=== PATIENT | male | born 1930 | race Caucasian/White ===

== ENCOUNTER → 2017-08-18 | Outpatient (CLI) | payer MEDICARE, BC ==
[~2017-08-18] MED LIST: AMLO10CA PO; AMLO10TA2 PO; CIPR500T2 PO; CYAN1TAB24 PO; DULO1CAP2 PO; ENOX30IN I-VENTRIC; METO1TAB9 PO; OMEP20CA2 PO; OXYC1TAB36 PO; PERC10TA27 PO; TOPR50TA PO; WALKER WHEELS/F1 MIS; XARE20TA PO
[2017-08-18 14:11] LABS: AUTOMATED NEUTROPHIL # 6.7 TH/MM3 (1.8-7.7); BASOPHIL # 0.1 TH/MM3 (0-0.2); EOSINOPHIL # 0.1 TH/MM3 (0-0.4); EOSINOPHIL % 0.8 % (0.0-4.0); HEMATOCRIT 46.6 % (39.0-51.0); HEMO FLAGS DIFF FINAL; LYMPH % 22.6 % (9.0-44.0); LYMPHOCYTE # 2.3 TH/MM3 (1.0-4.8); MEAN CELL VOLUME 84.6 FL (80.0-100.0); MEAN CORPUSCULAR HEMOGLOBIN 28.7 PG (27.0-34.0); MEAN CORPUSCULAR HGB CONC 33.9 % (32.0-36.0); MONO % 8.4 % (0.0-8.0); NEUT % 67.2 % (16.0-70.0); PLATELET COUNT 296 TH/MM3 (150-450); RED BLOOD COUNT 5.51 MIL/MM3 (4.50-5.90); RED CELL DISTRIBUTION WIDTH 15.5 % (11.6-17.2)
[2017-08-18 14:20] LABS: APTT (PATIENT) 33.1 SEC (24.3-30.1); INTERNATIONAL NORMALIZED RATIO 1.3 RATIO
[2017-08-18 14:24] LABS: BACTERIA, URINE OCC /hpf; BLOOD, URINE MOD (NEG); GLUCOSE,URINE NEG (NEG); HYALINE CAST, URINE 1 /lpf (RARE); KETONE, URINE NEG (NEG); NITRITE,URINE NEG (NEG); PH, URINE 6.5 (5.0-8.5); SQUAMOUS EPITHELIAL CELL URINE <1 /hpf (0-5); URINE COLOR YELLOW (YELLW/STRAW)
[2017-08-18 14:28] LABS: COMMENT (UR) CULTURE INDICATED; CULTURE IF INDICATED CULTURE INDICATED
[2017-08-18 14:29] LABS: ALT (GPT) 28 U/L (12-78); ANION GAP 7 MEQ/L (5-15); AST (GOT) 19 U/L (15-37); BICARBONATE 30.8 MEQ/L (21.0-32.0); BLOOD UREA NITROGEN 15 MG/DL (7-18); CHLORIDE 102 MEQ/L (98-107); GLOMERULAR FILTRATION RATE 57 ML/MIN (>89); GLUCOSE,FASTING 101 MG/DL (74-99); POTASSIUM 4.1 MEQ/L (3.5-5.1); SODIUM (NA) 140 MEQ/L (136-145)
[2017-08-18 14:31] LABS: ALKALINE PHOSPHATASE 95 U/L (45-117); TOTAL BILIRUBIN ADULT 0.8 MG/DL (0.2-1.0)
--- NOTE | 2017-08-18 15:01 | RADRPT ---
EXAM DATE/TIME: 08/18/2017 14:19 [facility] COMPARISON: CHEST PA & LAT, May 22, 2016, 12:22. INDICATIONS : Evaluate for pneumonia, pneumothorax or communicable disease. Pre op for back surgery this week. MEDICAL HISTORY : atrial fibrillation. SURGICAL HISTORY : None. ENCOUNTER: Initial ACUITY: 1 day PAIN SCORE: 0/10 LOCATION: Bilateral chest FINDINGS: PA and lateral views of the chest demonstrate the lungs to be symmetrically aerated without evidence of mass, infiltrate or effusion. The cardiomediastinal contours are unremarkable. Osseous structure s are intact. CONCLUSION: No acute disease. Balaji Barnard Jr., MD on August 18, 2017 at 14:57 Board Certified Radiologist. This report was verified electronically.
--- NOTE | 2017-08-18 21:11 | EKG ---
Date Performed: 08/18/2017 Time Performed: 13:32:34 PTAGE: 87 years EKG: ATRIAL FIBRILLATION ABNORMAL RHYTHM ECG PREVIOUS TRACING : 05/22/2016 11.29 Compared to prior tracing no significant change DOCTOR: Jaida Barnett Interpretating Date/Time 08/18/2017 21:09:20
== END ==
LOC: CPRE 13:03
PROVIDERS: ATTEND Neurological Surgery
DX: Z01.810 Encounter for preprocedural cardiovascular examination (principal); Z01.811 Encounter for preprocedural respiratory examination; Z01.812 Encounter for preprocedural laboratory examination; M51.26 Other intervertebral disc displacement, lumbar region; M51.36 Other intervertebral disc degeneration, lumbar region; R94.31 Abnormal electrocardiogram [ECG] [EKG]; R82.90 Unspecified abnormal findings in urine; Z79.01 Long term (current) use of anticoagulants
CPT/HCPCS: 36415; 71020; 80053; 81001; 85025; 85610; 85730; 87086; 93005

== ENCOUNTER 2017-08-20 08:30 | Inpatient (IN) | payer MEDICARE, BC ==
[~2017-08-20] VITALS: Ht 182.9 cm; Wt 98.6 kg
[~2017-08-20 08:30] MED LIST changes: -AMLO10CA PO; -ENOX30IN I-VENTRIC; -METO1TAB9 PO; -OXYC1TAB36 PO; -WALKER WHEELS/F1 MIS
--- NOTE | 2017-08-26 18:10 | MH ---
cc: SHELLEY FONTAINE DR. KHANNA, ROHIT K. M.D. DATE OF ADMISSION: 08/28/2017 ADMITTING DIAGNOSIS: Lumbar degenerative disk disease. HISTORY OF PRESENT ILLNESS This is an 87-year-old male who previously had undergone an L4-L5 microdiskectomy on 05/28/2016 and did well subsequent to that. He states in September of 2016, he bent down and felt pain in his low back that radiated into the right leg. He has been to pain management had one injection which helped for two weeks and then he has had multiple other injection since then. They have not helped at all. The pain in the right buttocks radiates into the lateral thigh and calf. He has paresthesias in the posterior aspect of his leg and bottom of the foot. He denies any bowel or bladder incontinence. He states his leg feels weak and can give out on him. He states he can only walk about 100 feet before he has to stop and sit down or else he feels like he will fall. He can only stand for five minutes before the pain becomes severe and he has to sit down again. He states the pain is affecting his life and he is not as active as he wants to be. PAST MEDICAL HISTORY Significant for: 1. Atrial fibrillation 2. Hypertension 3. Gastroesophageal reflux disease 4. Depression. PAST SURGICAL HISTORY: 1. Right arm and elbow implant in 2001. 2. Left and right knee replacement in 2011 and 2012. 3. L4-L5 decompressive laminectomy with microdiskectomy 05/28/2016. CURRENT MEDICATIONS 1. [place] 10/325 p.o. q6 hours p.r.n. pain. 2. Hydrochlorothiazide 25 mg p.o. daily. 3. Cipro 500 mg p.o. b.i.d. 4. Toprol 25 mg p.o. daily. 5. Xarelto 10 milligrams p.o. daily. This was placed on hold four days prior to surgical intervention. 6. Prilosec 10 milligrams p.o. daily. 7. Cymbalta 20 milligrams p.o. daily. ALLERGIES No known drug allergies. FAMILY HISTORY His mother is at 73 years old of natural causes. Father at 79 years old, had a heart attack. Sister at 88 years old, had a heart attack. Another sister at 91 years old, had cancer. Brother at 89 years old of a heart attack. SOCIAL HISTORY: He is retired. He is . He has two children. He lives alone. He does not smoke. He states he has not smoked in the past. He does not drink alcohol. REVIEW OF SYSTEMS Constitutional: Denies any fever or chills. HEENT: No pharyngitis, exudates or bloody drainage from his nose. Cardiovascular: Denies any chest pain or palpitations. Respiratory: Positive for shortness of breath. No cough. Genitourinary: No dysuria or hematuria. Musculoskeletal: Positive for low back pain and leg pain. Skin: No rashes or pruritus. Neurologic: No difficulty with speech or memory. Gastrointestinal: No nausea, vomiting, abdominal pain. Psychiatric: No anxiety symptoms. Positive for depression symptoms. Endocrine: No polyuria, polydipsia. Hematologic: Positive for bruising or bleeding tendencies related to his anticoagulation. DATA REVIEWED: MRI of the lumbar spine from July 18, 2017 reveals a recurrent L4-L5 disk degeneration with herniation and facet arthropathy and severe spinal stenosis. He has moderate L5-S1 disk degeneration. IMPRESSION An 87 year-old male with history of low back pain and neurogenic claudication symptoms as well as right L4-L5 radiculopathy. The lower extremity symptoms bother him more than the back pain and are produced with any standing more than five minutes or walking more than 100 feet. He has tried physical therapy in the past without much relief, and has also been to pain management which provide him with very limited relief. PLAN: We discussed treatment options with the patient which include continued conservative treatment measures including physical therapy and pain management versus surgical intervention. We have discussed with him a redo L4-L5 laminectomy with microdiskectomy versus an L4-L5 transforaminal decompression with interbody fusion and pedicle screw fixation. The patient is requesting that we proceed with lumbar fusion. He was, therefore, scheduled accordingly for L4-L5 translateral interbody fusion. The procedure as well as the risk, benefit, alternatives and recovery time were explained in great detail with the patient. We have discussed the risks involved with surgery to include but are not limited to bleeding, infection, muscle weakness, voice hoarseness, difficulty swallowing, heart attack, stroke, blood clots, non-fusion, scar tissue formation among others. The patient states he understands the procedure as well as the risks involved and is requesting that we proceed and is therefore scheduled accordingly. Dictated by: Lane Cook PA-C MD LESLI Ordonez/WIL /4:48 PM /5:12 PM
[2017-08-28] MEDS ORDERED: VANCOMYCIN HCL 1000 MG VIAL ONE ×3 (06:39→06:55)
[2017-08-28] MEDS ORDERED: SODIUM CHLOR 0.9% 250 ML INJ 250 ML ONE (06:40)
[2017-08-28] MEDS ORDERED: CHLORHEXIDINE GLUCONATE 2 % 1 PACK (2 CLOTHS) TOPICAL PRN (06:45)
[2017-08-28] MEDS ORDERED: METOPROLOL TARTRATE 25 MG TAB PO PRN (06:45)
[2017-08-28] MEDS ORDERED: POVIDONE IODINE 5% (ANTISEPSIS KIT) 4 APPLICATIONS EACH NARE PRN (06:45)
[2017-08-28] MEDS ORDERED: SODIUM CHLORID 0.9% 500 ML IV PRN (06:45)
[2017-08-28] MEDS ORDERED: LACTATED RINGER'S 1000 ML IV PRN (06:45)
[2017-08-28] MEDS ORDERED: INSULIN HUMAN REGULAR 1,000 UNITS/10 ML VIAL SQ PRN (06:45)
[2017-08-28] MEDS ORDERED: THROMBIN (TOPICAL) 5,000 UNIT VIAL ONE (06:55)
[2017-08-28] MEDS ORDERED: BUPIVACAINE/EPINEPHRINE 0.5% PF 30 ML VIAL ONE (06:55)
[2017-08-28] MEDS ORDERED: GELFOAM SIZE 100 ONE (06:55)
[2017-08-28] MEDS ORDERED: VANCOMYCIN HCL 1000 MG ON-CALL/NS 250 ML IV SCH ×2 (07:00)
[2017-08-28] MEDS ORDERED: ONDANSETRON HCL 4 MG/2 ML VIAL IV PUSH PRN (09:45)
[2017-08-28] MEDS ORDERED: CALCIUM GLUCONATE INJ 1 GM in SODIUM CHLORIDE 0.9% INJ 100 ML IV PRN (09:45)
[2017-08-28] MEDS ORDERED: POTASSIUM CHLOR 20 MEQ PREMIX 100 ML IV PRN (09:45)
[2017-08-28] MEDS ORDERED: MAGNESIUM HYDROXIDE SUSP 30 ML CUP PO PRN (09:45)
[2017-08-28] MEDS ORDERED: ALUMINUM/MAGNESIUM/SIMETH 30 ML CUP PO PRN (09:45)
[2017-08-28] MEDS ORDERED: ACETAMINOPHEN 325 MG TAB PO PRN (09:45)
[2017-08-28] MEDS ORDERED: PROMETHAZINE INJ 25 MG/ML VIAL IM PRN (09:45)
[2017-08-28] MEDS ORDERED: CYCLOBENZAPRINE HCL 10 MG TAB PO PRN (09:45)
[2017-08-28] MEDS ORDERED: MORPHINE SULFATE 4 MG/ML INJ IV PUSH PRN (09:45)
[2017-08-28] MEDS ORDERED: cloNIDine HCL 0.1 MG TAB PO PRN (09:45)
[2017-08-28] MEDS ORDERED: ZOLPIDEM TARTRATE 5 MG TAB PO PRN (09:45)
[2017-08-28] MEDS ORDERED: MAGNESIUM SULFATE INJ 2 GM in SODIUM CHLORIDE 0.9% INJ 100 ML IV PRN (09:45)
[2017-08-28] MEDS ORDERED: RESP: ALBUTEROL 2.5 MG/3 ML NEB (PRN) NEB (09:45)
[2017-08-28] MEDS ORDERED: SODIUM CHLORIDE 0.9% FLUSH 10 ML FLUSH IV FLUSH PRN (09:45)
[2017-08-28] MEDS ORDERED: PROPOFOL 200 MG/20 ML AMP IV ONE (12:00)
[2017-08-28] MEDS ORDERED: LACTATED RINGER'S 1000 ML INJ 1,000 ML IV ONE (12:00)
[2017-08-28] MEDS ORDERED: ONDANSETRON HCL 4 MG/2 ML VIAL IV ONE (12:00)
[2017-08-28] MEDS ORDERED: ROCURONIUM INJ 50 MG/5 ML SYRINGE IV PUSH ONE (12:00)
[2017-08-28] MEDS ORDERED: DEXAMETHASONE SOD PHOS 4 MG/ML VIAL IV ONE (12:00)
[2017-08-28] MEDS ORDERED: LIDOCAINE HCL 1% PF 5 ML SYRINGE OTHER ONE (12:00)
[2017-08-28] MEDS ORDERED: DO NOT ADM ANY ANTICOAGULANT DRUGS PRN (12:07)
--- NOTE | 2017-08-28 12:11 | PD.OP ---
Glenna Romero MD Operative Report Date of Surgery: Aug 28, 2017 Preoperative Diagnosis: Recurrent L4-5 disc herniation with degenerative disc disease and facet hypertrophy associated spinal and foraminal stenosis; intractable low back pain with right L4 radiculopathy Postoperative Diagnosis: Same Procedure: Right L4-5 transforaminal decompression with interbody fusion; L4-5 pedicle screw fixation; L4-5 interbody cage placement; microsurgical technique Anesthesia: Gen. endotracheal by Ruben perry Surgeon: Marshall Alvarez M.D. Director Business Development(s): Mariaa Jarvis Operation and Findings: Following initiation of general endotracheal anesthesia, the patient had a Rowe catheter placed along with sequential compression devices. A gram of vancomycin was administered intravenously and he was turned in a prone position on a Gil[place] frame, on a Neville table, and all pressure points adequately padded. The lumbosacral region was then prepped with Chloraprep and sterilely draped with Ioban along the usual sterile draping. A skin incision at the previous midline area was then made extending from the L4-L5 level after infiltrating the skin with 0.5% Marcaine with epinephrine solution extending down through the fascia. The muscle fibers were split using avascular fatty plane and detached from the underlying facets, transverse process and lateral portion of lamina on the right side and a self-retaining retractor used for exposure. Intraoperative fluoroscopy was also used for level of confirmation along with microscope magnification for further dissection. There was significant facet and ligamentum flavum hypertrophy noted at the L4-5 levels with the hemilaminotomy defect and epidural fibrosis and scar tissue. Right L4- 5 facet was resected with a drill bit along with the lamina and there was severe foraminal and lateral recess stenosis from hypertrophied ligamentum flavum and facet which were decompressed. There was significant disc height collapse along with disc protrusion also leading to the foraminal stenosis. Epidural hemostasis was achieved with bipolar cautery and Gelfoam with thrombin. Subsequently entered into the disc space at the L4-5 level with a # 15 blade and betty were used for discectomy. I then placed PEEK cage packed with local autograft bone and more local autograft bone was packed adjacent to the cage in interspace for added interbody fusion. With placement of the cage, I was able to distract the interspace and opened up the foramen further bilaterally. Subsequently in order to facilitate the fusion and provide stabilization, pedicle screw fixation was undertaken using Fowler spine screws on entry point at the right L4-5 levels at the junction of the transverse process and facet. Subsequently using AP and lateral fluoroscopy tap and screw placement. The screws were then connected with a osmin and locked in place with caps. The construct appeared very secure at this point. The area was then copiously irrigated with Vancomycin solution and powder. The retractors were removed and the bipolar cautery used for hemostasis. The muscle fascia was then approximated using 2-0 Vicryl interrupted stitches and then 3-0 Vicryl subcuticular stitches also placed in interrupted fashion. The final skin closure was completed with Mastisol and Steri-Strips. A sterile dressing was then applied. The patient then turned in supine position, extubated and taken to recovery room. There were no intraoperative complications. All sponge and needle counts were correct at the end of procedure. Estimated blood loss about 50 ml. Marshall Alvarez MD Aug 28, 2017 12:11
--- NOTE | 2017-08-28 12:34 | RADRPT ---
EXAM DATE/TIME: 08/28/2017 08:40 [facility] COMPARISON: No previous studies available for comparison. INDICATIONS : Post-op L4-L5 posterior lumbar fusion. MEDICAL HISTORY : None. SURGICAL HISTORY : Lumbar laminectomy. ENCOUNTER: Initial ACUITY: 1 day PAIN SCORE: Non-responsive. LOCATION: Lumbar spine. FINDINGS: Number AP and crosstable lateral fluoroscopic images of the lower lumbar spine. There has been intrad iscal and right posterior osmin and transpedicular screw fixation at L4-5. Hardware appears intact and well-positioned. Sagittal alignment is maintained. The visualized vertebral body heights are intact. CONCLUSION: 1. Status post L4-L5 intradiscal and posterior fixation, as above. Shaquille Nuñez MD on August 28, 2017 at 12:31 Board Certified Radiologist. This report was verified electronically.
[2017-08-28 13:30] VITALS: BP 128/69; PULSE 84; RESP 18; TEMP 97.7; O2SAT 98
[2017-08-28] MEDS: NS + KCL 20 MEQ INJ 1,000 ML IV SCH (13:30)
[2017-08-28 13:41] LABS: HEMATOCRIT 36.9 % (39.0-51.0); MEAN CELL VOLUME 85.5 FL (80.0-100.0); MEAN CORPUSCULAR HEMOGLOBIN 29.1 PG (27.0-34.0); PLATELET COUNT 217 TH/MM3 (150-450); RED BLOOD COUNT 4.32 MIL/MM3 (4.50-5.90); RED CELL DISTRIBUTION WIDTH 14.8 % (11.6-17.2); WHITE BLOOD COUNT 8.5 TH/MM3 (4.0-11.0)
[2017-08-28 13:47] LABS: REVIEW FLAG FINAL
[2017-08-28 14:02] LABS: BICARBONATE 23.9 MEQ/L (21.0-32.0)
[2017-08-28 14:03] LABS: POTASSIUM 4.2 MEQ/L (3.5-5.1)
[2017-08-28 14:16] LABS: CALCIUM-PROTEIN CORRECTED 7.5 MG/DL (8.5-10.1)
[2017-08-28] MEDS: SODIUM CHLOR 0.9% 1000 ML INJ 1,000 ML IV SCH (14:25)
[2017-08-28] MEDS: oxyCODONE/ACETAMINOPHEN 10 MG/325 MG TAB PO PRN ×2 (15:42→20:15)
[2017-08-28 16:00] VITALS: BP 131/67; PULSE 90; RESP 18; TEMP 97.6; O2SAT 95
[2017-08-28 20:00] VITALS: BP 123/60; PULSE 85; RESP 20; TEMP 98.2; O2SAT 94
[2017-08-28] MEDS: DOCUSATE SODIUM 100 MG CAP PO SCH (20:15)
[2017-08-28] MEDS: CIPROFLOXACIN 500 MG TAB PO SCH (20:16)
[2017-08-28] MEDS: SODIUM CHLORIDE 0.9% FLUSH 10 ML FLUSH IV FLUSH SCH (21:00)
[2017-08-29] VITALS: BP 125/61; PULSE 104; RESP 20; TEMP 98.1; O2SAT 93
[2017-08-29] MEDS: NS + KCL 20 MEQ INJ 1,000 ML IV SCH (03:35)
[2017-08-29 04:00] VITALS: BP 126/59; PULSE 98; RESP 20; TEMP 97.8; O2SAT 93
[2017-08-29] MEDS: oxyCODONE/ACETAMINOPHEN 10 MG/325 MG TAB PO PRN ×3 (06:34→17:36)
[2017-08-29] MEDS: SODIUM CHLOR 0.9% 1000 ML INJ 1,000 ML IV SCH (06:45)
[2017-08-29 08:18] VITALS: BP 134/81; PULSE 99; RESP 20; TEMP 98.9; O2SAT 96
[2017-08-29] MEDS: SODIUM CHLORIDE 0.9% FLUSH 10 ML FLUSH IV FLUSH SCH ×2 (08:35→22:06)
[2017-08-29] MEDS: DOCUSATE SODIUM 100 MG CAP PO SCH ×2 (08:36→22:05)
[2017-08-29] MEDS: PANTOPRAZOLE SOD 20 MG DELAYED RELEASE TAB PO SCH (08:36)
[2017-08-29] MEDS: POLYETHYLENE GLYCOL 17 GM PKG PO SCH (08:37)
[2017-08-29] MEDS: METOPROLOL SUCCINATE 50 MG EXTENDED RELEASE TAB PO SCH (08:37)
[2017-08-29] MEDS: DULoxetine HCl DR 30 MG CAP PO SCH (08:37)
[2017-08-29] MEDS: CIPROFLOXACIN 500 MG TAB PO SCH ×2 (08:37→22:05)
[2017-08-29] MEDS: CYANOCOBALAMIN 1,000 MCG TAB PO SCH (08:37)
--- NOTE | 2017-08-29 11:21 | HHI.NSPN ---
(Lane Cook) History Chief Complaint: Incisional discomfort, controlled with medication. (Lane Cook) Interval History 08/29/17: Pt s/p L4/L5 TLIF with cage and pedicle screw fixation on 08/28/17. He complains of incisional pain controlled with pain medication. Some pain extending into the right posterior thigh to the knee. Paresthesias on the right lateral calf. Pt was up and ambulated with PT. (Lane Cook) Review of Systems General: Negative for: fever, chills, insomnia Respiratory: Negative for: shortness of breath, cough, sputum Cardiovascular: Negative for: chest pain Gastrointestinal: Negative for: nausea, vomitting, diarrhea, constipation ( Lane Cook) Exam Results Vital Signs Date Time Temp Pulse Resp B/P (MAP) Pulse Ox O2 Delivery O2 Flow Rate FiO2 08/29/17 08:18 98.9 99 20 134/81 (98) 96 08/28/17 13:00 Nasal Cannula 4 Intake and Output 08/29/17 08/29/17 08/30/17 08:00 16:00 00:00 Intake Total 1200 ml Output Total 450 ml Balance 750 ml (Lane Cook) Physical Examination Resp: CTA bilaterally Heart: NSR no murmurs Abd: Soft positive bs Skin: No cyanosis or erythema Muscle: Moves all 4 extremities with good strength Neuro: Pt awake and alert. Follows commands well. Speech clear and appropriate. (Lane Cook) Lab, Micro, Other Results Last Impressions Lumbar Spine X-Ray 08/28/17 0000 Signed Impressions: Service Date/Time: Monday, August 28, 2017 08:40 - CONCLUSION: 1. Status post L4-L5 intradiscal and posterior fixation, as above. Shaquille Nuñez MD Laboratory Tests Test 08/28/17 12:56 08/28/17 13:10 Blood Urea Nitrogen 14 MG/DL Creatinine 1.30 MG/DL Random Glucose 124 MG/DL Total Protein 6.5 GM/DL Calcium Level 7.2 MG/DL Sodium Level 138 MEQ/L Potassium Level 4.2 MEQ/L Chloride Level 107 MEQ/L Carbon Dioxide Level 23.9 MEQ/L Anion Gap 7 MEQ/L Estimat Glomerular Filtration Rate 52 ML/MIN Protein Corrected Calcium 7.5 MG/DL White Blood Count 8.5 TH/MM3 Red Blood Count 4.32 MIL/MM3 Hemoglobin 12.6 GM/DL Hematocrit 36.9 % Mean Corpuscular Volume 85.5 FL Mean Corpuscular Hemoglobin 29.1 PG Mean Corpuscular Hemoglobin Concent 34.0 % Red Cell Distribution Width 14.8 % Platelet Count 217 TH/MM3 Mean Platelet Volume 8.9 FL (Lane Cook) Medical Decision Making Impression and Plan A: 87 y/o M s/p L4/L5 TLIF with cage and pedicle screw fixation on 08/28/17. P: Continue with pain control Continue with PT (Lane Cook) Attending Statement The exam, history, and the medical decision-making described in the above note were completed with the assistance of the mid-level provider. I reviewed and agree with the findings presented. I attest that I had a [id number] encounter with the patient on the same day, and personally performed and documented my assessment and findings in the medical record. (Marshall Alvarez MD) Lane Cook Aug 29, 2017 11:21 Marshall Alvarez MD Aug 29, 2017 12:15
[2017-08-29 12:30] VITALS: BP 141/76; PULSE 114; RESP 20; TEMP 98.3
[2017-08-29 16:17] VITALS: BP 114/70; PULSE 90; RESP 20; TEMP 98; O2SAT 95
[2017-08-29 20:00] VITALS: BP 112/66; PULSE 95; RESP 17; TEMP 97.4; O2SAT 95
[2017-08-30] VITALS (7 sets, daily range): BP systolic 132–164; BP diastolic 63–85; PULSE 92–121; RESP 16–20; TEMP 97.3–100.1; O2SAT 88–98
[2017-08-30] MEDS: SODIUM CHLOR 0.9% 1000 ML INJ 1,000 ML IV SCH (05:51)
[2017-08-30] MEDS: oxyCODONE/ACETAMINOPHEN 10 MG/325 MG TAB PO PRN ×2 (06:06→18:58)
[2017-08-30] MEDS: ENOXAPARIN SODIUM 30 MG/0.3 ML SYRINGE SQ SCH ×2 (07:48→21:44)
[2017-08-30] MEDS: CIPROFLOXACIN 500 MG TAB PO SCH ×2 (07:48→21:44)
[2017-08-30] MEDS: CYANOCOBALAMIN 1,000 MCG TAB PO SCH (07:48)
[2017-08-30] MEDS: DOCUSATE SODIUM 100 MG CAP PO SCH ×2 (07:48→21:44)
[2017-08-30] MEDS: METOPROLOL SUCCINATE 50 MG EXTENDED RELEASE TAB PO SCH (07:48)
[2017-08-30] MEDS: DULoxetine HCl DR 30 MG CAP PO SCH (07:48)
[2017-08-30] MEDS: PANTOPRAZOLE SOD 20 MG DELAYED RELEASE TAB PO SCH (07:48)
[2017-08-30] MEDS: POLYETHYLENE GLYCOL 17 GM PKG PO SCH (07:49)
[2017-08-30] MEDS: SODIUM CHLORIDE 0.9% FLUSH 10 ML FLUSH IV FLUSH SCH ×2 (07:49→21:44)
--- NOTE | 2017-08-30 11:45 | HHI.NSPN ---
History Chief Complaint: Incisional discomfort, controlled with medication. Interval History 08/29/17: Pt s/p L4/L5 TLIF with cage and pedicle screw fixation on 08/28/17. He complains of incisional pain controlled with pain medication. Some pain extending into the right posterior thigh to the knee. Paresthesias on the right lateral calf. Pt was up and ambulated with PT. 08/30/17: Pt awake and alert. Lumbar pain controlled with pain medications. States ambulating short distances with assistance. Pt complains of pain in right anterolateral thigh. Pt voiding okay but constipated. No chest pain or sob. Review of Systems General: Negative for: fever, chills, insomnia Respiratory: Negative for: shortness of breath, cough, sputum Cardiovascular: Negative for: chest pain Gastrointestinal: Negative for: nausea, vomitting, diarrhea, constipation Exam Results Vital Signs Date Time Temp Pulse Resp B/P (MAP) Pulse Ox O2 Delivery O2 Flow Rate FiO2 08/30/17 08:18 98.3 98 20 139/75 (96) 96 08/28/17 13:00 Nasal Cannula 4 Intake and Output 08/30/17 08/30/17 08/30/17 07:59 15:59 23:59 Intake Total 540 ml Output Total 450 ml Balance 90 ml Physical Examination Resp: CTA bilaterally Heart: NSR no murmurs Abd: Soft positive bs Skin: No cyanosis or erythema. Incision clean and dry. No signs of infection. Muscle: Moves all 4 extremities with good strength Neuro: Pt awake and alert. Follows commands well. Speech clear and appropriate. Lab, Micro, Other Results Last Impressions Lumbar Spine X-Ray 08/28/17 0000 Signed Impressions: Service Date/Time: Monday, August 28, 2017 08:40 - CONCLUSION: 1. Status post L4-L5 intradiscal and posterior fixation, as above. Shaquille Nuñez MD 08/30/17 08/30/17 08/31/17 14:59 22:59 06:59 Output Total 300 ml Balance -300 ml Output Urine Total 300 ml # Voids 1 Medical Decision Making Impression and Plan A: 87 y/o M s/p L4/L5 TLIF with cage and pedicle screw fixation on 08/28/17. P: Continue with pain control Continue with PT Dulcolax suppository for constipation Anticipate d/c tomorrow. Lane Cook Aug 30, 2017 11:45 am
[2017-08-30] MEDS ORDERED: BISACODYL 10 MG SUPP RECTAL PRN (12:00)
[2017-08-30] MEDS ORDERED: RESP: ALBUTEROL 2.5 MG/IPRATROPIUM 0.5 MG NEB (SCH) NEB ONE (21:00)
[2017-08-30] MEDS ORDERED: METOPROLOL TARTRATE 50 MG TAB PO ONE (21:00)
--- NOTE | 2017-08-30 22:04 | RADRPT ---
EXAM DATE/TIME: 08/30/2017 20:55 [facility] COMPARISON: No previous studies available for comparison. INDICATIONS : Shortness of breath. MEDICAL HISTORY : None. SURGICAL HISTORY : Lumbar laminectomy ENCOUNTER: Initial ACUITY: 1 day PAIN SCORE: 0/10 LOCATION: Bilateral chest FINDINGS: No subsegmental air space disease at the bases most characteristic of atelectasis. No effusion. No pn eumothorax. Heart size mildly enlarged. No pneumothorax. CONCLUSION: 1. Subsegmental basilar opacity, probably atelectasis. Mika Isbell MD on August 30, 2017 at 22:02 Board Certified Radiologist. This report was verified electronically.
[2017-08-31] VITALS (7 sets, daily range): BP systolic 115–142; BP diastolic 58–72; PULSE 96–110; RESP 17–20; TEMP 97.3–99.2; O2SAT 91–95
[2017-08-31] MEDS: SODIUM CHLOR 0.9% 1000 ML INJ 1,000 ML IV SCH (06:45)
--- NOTE | 2017-08-31 07:03 | EKG ---
Date Performed: 08/30/2017 Time Performed: 21:18:46 PTAGE: 87 years EKG: ATRIAL FIBRILLATION WITH RAPID VENTRICULAR RESPONSE ABNORMAL RHYTHM ECG PREVIOUS TRACING : 08/18/2017 13.32 No significant change from previous tracing noted. DOCTOR: Renan Kauffman Interpretating Date/Time 08/31/2017 07:01:29
[2017-08-31] MEDS: DULoxetine HCl DR 30 MG CAP PO SCH (08:51)
[2017-08-31] MEDS: CIPROFLOXACIN 500 MG TAB PO SCH ×2 (08:51→20:40)
[2017-08-31] MEDS: METOPROLOL SUCCINATE 50 MG EXTENDED RELEASE TAB PO SCH (08:51)
[2017-08-31] MEDS: CYANOCOBALAMIN 1,000 MCG TAB PO SCH (08:52)
[2017-08-31] MEDS: POLYETHYLENE GLYCOL 17 GM PKG PO SCH (08:52)
[2017-08-31] MEDS: DOCUSATE SODIUM 100 MG CAP PO SCH ×2 (08:52→20:40)
[2017-08-31] MEDS: ENOXAPARIN SODIUM 30 MG/0.3 ML SYRINGE SQ SCH ×2 (08:52→20:40)
[2017-08-31] MEDS: PANTOPRAZOLE SOD 20 MG DELAYED RELEASE TAB PO SCH (08:52)
[2017-08-31] MEDS: SODIUM CHLORIDE 0.9% FLUSH 10 ML FLUSH IV FLUSH SCH ×2 (08:53→21:00)
--- NOTE | 2017-08-31 10:11 | HHI.NSPN ---
(Lane Cook) History Chief Complaint: Incisional discomfort, controlled with medication. (Lane Cook) Interval History 08/29/17: Pt s/p L4/L5 TLIF with cage and pedicle screw fixation on 08/28/17. He complains of incisional pain controlled with pain medication. Some pain extending into the right posterior thigh to the knee. Paresthesias on the right lateral calf. Pt was up and ambulated with PT. 08/30/17: Pt awake and alert. Lumbar pain controlled with pain medications. States ambulating short distances with assistance. Pt complains of pain in right anterolateral thigh. Pt voiding okay but constipated. No chest pain or sob. 08/31/17: Pt awake and alert. States pain in right anterolateral thigh improved. Pt states moving his bowels. No chest pain or sob. (Lane Cook) Review of Systems General: Negative for: fever, chills, insomnia Respiratory: Negative for: shortness of breath, cough, sputum Cardiovascular: Negative for: chest pain Gastrointestinal: Negative for: nausea, vomitting, diarrhea, constipation ( Lane Cook) Exam Results Vital Signs Date Time Temp Pulse Resp B/P (MAP) Pulse Ox O2 Delivery O2 Flow Rate FiO2 08/31/17 08:04 98.8 98 20 139/72 (94) 95 08/28/17 13:00 Nasal Cannula 4 Intake and Output 08/31/17 08/31/17 09/01/17 08:00 16:00 00:00 Output Total 300 ml Balance -300 ml (Lane Cook) Physical Examination Resp: CTA bilaterally Heart: NSR no murmurs Abd: Soft positive bs Skin: No cyanosis or erythema. Muscle: Moves all 4 extremities with good strength Neuro: Pt awake and alert. Follows commands well. Speech clear and appropriate. (Lane Cook) Lab, Micro, Other Results Last Impressions Lumbar Spine X-Ray 08/28/17 0000 Signed Impressions: Service Date/Time: Monday, August 28, 2017 08:40 - CONCLUSION: 1. Status post L4-L5 intradiscal and posterior fixation, as above. Shaquille Nuñez MD (Lane Cook) Medical Decision Making Impression and Plan A: 87 y/o M s/p L4/L5 TLIF with cage and pedicle screw fixation on 08/28/17. P: Continue with pain control Continue with PT D/C home today. (Lane Cook) Attending Statement The exam, history, and the medical decision-making described in the above note were completed with the assistance of the mid-level provider. I reviewed and agree with the findings presented. I attest that I had a [id number] encounter with the patient on the same day, and personally performed and documented my assessment and findings in the medical record. (Marshall Alvarez MD) Lane Cook Aug 31, 2017 10:10 Marshall Alvarez MD Aug 31, 2017 17:03
--- NOTE | 2017-08-31 10:23 | PD.CONS ---
[facility] Request[facility] By Marshall Alvarez MD Reason for Consult Medical management. Primary Care Physician Glenna Romero M.D. Diagnoses: History of Present Illness This is a pleasant 87 y/o male who was admitted by Neurosurgery for scheduled procedure, with diagnosis of Lumbar degenerative disk disease, was admitted on 08/28/17 the patient had undergone an L4-L5 microdiskectomy on 05/28/16, he is status post trauma has been managed by Pain medicine specialist with multiple injections with no improvement, with pain on right buttocks radiated to his leg, and bottom of the foot, has Atrial Fibrillation, Hypertension, GERD, Depression, the patient was seen in his bedroom and discussed with nurse Mr. Skinner he had some run of V Tach at this time of this evaluation he has Atrial Fibrillation with controlled rate. no change on anterior evaluation, denies any chest pain. he is at baseline. Review of Systems Constitutional: DENIES: Fever, Chills, Change in appetite Endocrine: DENIES: Heat/cold intolerance Eyes: DENIES: Blurred vision, Eye pain Except as stated in HPI: all other systems reviewed are Neg Past Family Social History Allergies: Coded Allergies: No Known Allergies (Unverified Allergy, Unknown, 08/18/17) Past Medical History Atrial Fibrillation Hypertension GERD Depression Past Surgical History Right arm and elbow implant in 2001. Left and right knee replacement in 2011 and 2012. L4-L5 decompressive laminectomy with microdiskectomy 05/28/2016. Reported Medications Reported Meds & Active Scripts Active Ciprofloxacin (Ciprofloxacin HCl) 500 Mg Tab 500 Mg PO BID 7 Days Percocet (Oxycodone-Acetaminophen) 10-325 mg Tab 1 Tab PO Q6H PRN Reported B12 (Cyanocobalamin) 1,000 Mcg Tab 1,000 Mcg PO DAILY Toprol XL (Metoprolol Succinate) 50 Mg Tab 50 Mg PO DAILY Amlodipine (Amlodipine Besylate) 10 Mg Tab 30 Mg PO DAILY Duloxetine DR (Duloxetine HCl) 30 Mg Capdr 30 Mg PO DAILY Xarelto (Rivaroxaban) 20 Mg Tab 20 Mg PO DAILY Omeprazole 20 Mg Cap 20 Mg PO DAILY Active Ordered Medications Current Medications Medications (Trade) Dose Ordered Sig/Parish Route Start Time Stop Time Status Last Admin Sodium Chloride 1,000 ml @ 30 mls/hr Q24H IV 08/28/17 06:45 (Norvasc) 30 mg DAILY PO 08/29/17 09:00 08/31/17 08:51 (Cipro) 500 mg BID PO 08/28/17 21:00 08/31/17 08:51 (Cymbalta Dr) 30 mg DAILY PO 08/29/17 09:00 08/31/17 08:51 (Toprol Xl) 50 mg DAILY PO 08/29/17 09:00 08/31/17 08:51 (Vitamin B12) 1,000 mcg DAILY PO 08/29/17 09:00 08/31/17 08:52 (Protonix) 20 mg DAILY PO 08/29/17 09:00 08/31/17 08:52 (NS Flush) 2 ml UNSCH PRN IV FLUSH 08/28/17 09:45 (NS Flush) 2 ml BID IV FLUSH 08/28/17 21:00 08/31/17 08:53 (Lovenox Inj) 30 mg Q12H SQ 08/30/17 09:00 08/31/17 08:52 (Colace) 100 mg BID PO 08/28/17 21:00 08/31/17 08:52 (Milk Of Magnesia Liq) 30 ml DAILY PRN PO 08/28/17 09:45 (Mag-Al Plus Susp Liq) 30 ml Q6H PRN PO 08/28/17 09:45 (Zofran Inj) 4 mg Q6H PRN IV PUSH 08/28/17 09:45 08/30/17 17:02 (Phenergan Inj) 25 mg Q4H PRN IM 08/28/17 09:45 Calcium Gluconate 1 gm/Sodium Chloride 110 ml @ 110 mls/hr UNSCH PRN IV 08/28/17 09:45 Potassium Chloride 100 ml @ 50 mls/hr UNSCH PRN IV 08/28/17 09:45 Magnesium Sulfate 2 gm/Sodium Chloride 104 ml @ 100 mls/hr UNSCH PRN IV 08/28/17 09:45 (Flexeril) 10 mg Q8H PRN PO 08/28/17 09:45 (Catapres) 0.1 mg Q6H PRN PO 08/28/17 09:45 (Tylenol) 650 mg Q4H PRN PO 08/28/17 09:45 (Ambien) 5 mg HS PRN PO 08/28/17 09:45 (Albuterol Neb) 2.5 mg Q4HR NEB PRN NEB 08/28/17 09:45 (Percocet 10-325 Mg) 1 tab Q4H PRN PO 08/28/17 09:45 08/29/17 06:34 (Percocet 10-325 Mg) 2 tab Q4H PRN PO 08/28/17 09:45 08/30/17 18:58 (Morphine Inj) 4 mg Q1H PRN IV PUSH 08/28/17 09:45 (Miralax) 17 gm DAILY PO 08/29/17 09:00 08/30/17 07:49 (Dulcolax Supp) 10 mg DAILY PRN RECTAL 08/30/17 12:00 Family History Sister with Cancer Social History He is retired. He is . He has two children. He lives alone. He does not smoke. He states he has not smoked in the past. He does not drink alcohol. Physical Exam Vital Signs Vital Signs Date Time Temp Pulse Resp B/P (MAP) Pulse Ox O2 Delivery O2 Flow Rate FiO2 08/31/17 08:04 98.8 98 20 139/72 (94) 95 08/31/17 00:11 99.2 101 17 115/58 (77) 92 08/30/17 20:42 100.1 121 18 164/82 (109) 94 08/30/17 20:00 99.7 107 17 134/63 (86) 88 08/30/17 16:33 98.5 101 20 147/75 (99) 96 08/30/17 12:06 98.4 100 20 159/85 (109) 96 Physical Exam GENERAL: This is a well-nourished, well-developed patient, in no apparent distress. SKIN: No rashes, ecchymoses or lesions. Cool and dry. HEAD: Atraumatic. Normocephalic. No temporal or scalp tenderness. EYES: Pupils equal round and reactive. Extraocular motions intact. No scleral icterus. No injection or drainage. ENT: Nose without bleeding, purulent drainage or septal hematoma. Throat without erythema, tonsillar hypertrophy or exudate. Uvula midline. Airway patent. NECK: Trachea midline. No JVD or lymphadenopathy. Supple, nontender, no meningeal signs. CARDIOVASCULAR: Irregular rate and rhythm. Systolic murmur found. RESPIRATORY: Clear to auscultation. Breath sounds equal bilaterally. No wheezes , rales, or rhonchi. GASTROINTESTINAL: Abdomen soft, non-tender, nondistended. No hepato-splenomegaly , or palpable masses. No guarding. MUSCULOSKELETAL: Extremities without clubbing, cyanosis, or edema. NEUROLOGICAL: Awake and alert. Cranial nerves II through XII intact. Result Diagram: 08/28/17 1310 08/28/17 1256 Assessment and Plan Assessment and Plan 1. 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 Hypertension controlled. 3. Atrial Fibrillation will continue Beta blockers and Xarelto at discharge. 4. GERD by history 5. Depression by history continue Home medicines DVT prophylaxis as per neurosurgery specialist Okay to discharge home from Medicine standpoint. Code Status Hospitalist cleared for discharge. Angel Dubon MD Aug 31, 2017 10:23 am
[2017-08-31 15:45] LABS: AUTOMATED NEUTROPHIL # 11.5 TH/MM3 (1.8-7.7); BASOPHIL # 0.1 TH/MM3 (0-0.2); BASOPHIL % 0.4 % (0.0-2.0); EOSINOPHIL # 0.1 TH/MM3 (0-0.4); EOSINOPHIL % 0.5 % (0.0-4.0); HEMATOCRIT 39.8 % (39.0-51.0); HEMO FLAGS DIFF FINAL; LYMPH % 8.7 % (9.0-44.0); LYMPHOCYTE # 1.2 TH/MM3 (1.0-4.8); MEAN CELL VOLUME 85.3 FL (80.0-100.0); MEAN CORPUSCULAR HEMOGLOBIN 27.9 PG (27.0-34.0); MEAN CORPUSCULAR HGB CONC 32.7 % (32.0-36.0); MONO % 7.4 % (0.0-8.0); PLATELET COUNT 259 TH/MM3 (150-450); RED BLOOD COUNT 4.67 MIL/MM3 (4.50-5.90); RED CELL DISTRIBUTION WIDTH 15.4 % (11.6-17.2); WHITE BLOOD COUNT 13.9 TH/MM3 (4.0-11.0)
[2017-08-31 16:08] LABS: ANION GAP 6 MEQ/L (5-15); BICARBONATE 29.8 MEQ/L (21.0-32.0); BLOOD UREA NITROGEN 13 MG/DL (7-18); CHLORIDE 97 MEQ/L (98-107); GLOMERULAR FILTRATION RATE 60 ML/MIN (>89); POTASSIUM 3.4 MEQ/L (3.5-5.1); SODIUM (NA) 133 MEQ/L (136-145)
[2017-08-31 16:09] LABS: ALT (GPT) 16 U/L (12-78); AST (GOT) 16 U/L (15-37)
[2017-08-31 16:11] LABS: ALKALINE PHOSPHATASE 80 U/L (45-117)
[2017-08-31] MEDS: oxyCODONE/ACETAMINOPHEN 10 MG/325 MG TAB PO PRN (17:41)
[2017-09-01] VITALS (10 sets, daily range): BP systolic 128–162; BP diastolic 62–80; PULSE 68–118; RESP 19–23; TEMP 97.1–98.4; O2SAT 92–96
[2017-09-01] MEDS: SODIUM CHLOR 0.9% 1000 ML INJ 1,000 ML IV SCH ×2 (06:45→14:44)
[2017-09-01] MEDS: SODIUM CHLORIDE 0.9% FLUSH 10 ML FLUSH IV FLUSH SCH ×2 (08:29→21:00)
[2017-09-01] MEDS: DOCUSATE SODIUM 100 MG CAP PO SCH ×2 (08:30→20:43)
[2017-09-01] MEDS: ENOXAPARIN SODIUM 30 MG/0.3 ML SYRINGE SQ SCH ×2 (08:30→20:44)
[2017-09-01] MEDS: oxyCODONE/ACETAMINOPHEN 10 MG/325 MG TAB PO PRN ×2 (08:31→14:46)
[2017-09-01] MEDS: CYANOCOBALAMIN 1,000 MCG TAB PO SCH (08:31)
[2017-09-01] MEDS: PANTOPRAZOLE SOD 20 MG DELAYED RELEASE TAB PO SCH (08:31)
[2017-09-01] MEDS: METOPROLOL SUCCINATE 50 MG EXTENDED RELEASE TAB PO SCH (08:31)
[2017-09-01] MEDS: DULoxetine HCl DR 30 MG CAP PO SCH (08:31)
[2017-09-01] MEDS: CIPROFLOXACIN 500 MG TAB PO SCH ×2 (08:31→20:43)
[2017-09-01] MEDS: POLYETHYLENE GLYCOL 17 GM PKG PO SCH (08:33)
[2017-09-01] MEDS ORDERED: POTASSIUM CHLORIDE 10 MEQ CONTROLLED RELEASE TAB PO ONE (09:00)
[2017-09-01] MEDS: MAGNESIUM SULFATE 1 GM PREMIX 100 ML IV SCH ×2 (14:38→16:44)
--- NOTE | 2017-09-01 16:40 | HHI.NSPN ---
History Chief Complaint: Incisional discomfort, controlled with medication. Interval History 08/29/17: Pt s/p L4/L5 TLIF with cage and pedicle screw fixation on 08/28/17. He complains of incisional pain controlled with pain medication. Some pain extending into the right posterior thigh to the knee. Paresthesias on the right lateral calf. Pt was up and ambulated with PT. 08/30/17: Pt awake and alert. Lumbar pain controlled with pain medications. States ambulating short distances with assistance. Pt complains of pain in right anterolateral thigh. Pt voiding okay but constipated. No chest pain or sob. 08/31/17: Pt awake and alert. States pain in right anterolateral thigh improved. Pt states moving his bowels. No chest pain or sob. 09/01/17: Pt awake and alert. Incisional back pain with right anterolateral thigh pain with varying intensity. Pt ambulated on floor today. Pt getting IV magnesium currently. Review of Systems General: Negative for: fever, chills, insomnia Respiratory: Positive for: shortness of breath (Pt states mild sob at times. He is on O2 currently.), Negative for: cough, sputum Cardiovascular: Negative for: chest pain Gastrointestinal: Negative for: nausea, vomitting, diarrhea, constipation Exam Results Vital Signs Date Time Temp Pulse Resp B/P (MAP) Pulse Ox O2 Delivery O2 Flow Rate FiO2 09/01/17 16:00 112 09/01/17 11:56 97.5 19 162/63 (96) 95 09/01/17 08:40 Nasal Cannula 2.00 Intake and Output 09/01/17 09/01/17 09/02/17 08:00 16:00 00:00 Intake Total 450 ml 240 ml Output Total 400 ml Balance 450 ml -160 ml Physical Examination Resp: CTA bilaterally Heart: irregular, no murmurs Abd: Soft positive bs Skin: No cyanosis or erythema. Muscle: Moves all 4 extremities with good strength Neuro: Pt awake and alert. Follows commands well. Speech clear and appropriate. Lab, Micro, Other Results Last Impressions Chest X-Ray 08/30/17 0000 Signed Impressions: Service Date/Time: Wednesday, August 30, 2017 20:55 - CONCLUSION: 1. Subsegmental basilar opacity, probably atelectasis. Mika Isbell MD Lumbar Spine X-Ray 08/28/17 0000 Signed Impressions: Service Date/Time: Monday, August 28, 2017 08:40 - CONCLUSION: 1. Status post L4-L5 intradiscal and posterior fixation, as above. Shaquille Nuñez MD Laboratory Tests Test 09/01/17 11:53 Lactic Acid Level 2.2 mmol/L Magnesium Level 1.2 MG/DL 09/01/17 09/01/17 09/02/17 15:00 23:00 07:00 Intake Total 240 ml Output Total 400 ml Balance -160 ml Intake Oral 240 ml Output Urine Total 400 ml Medical Decision Making Impression and Plan A: 87 y/o M s/p L4/L5 TLIF with cage and pedicle screw fixation on 08/28/17. P: Continue with pain control Continue with PT D/C held secondary to reported run of asymptomatic run of VTach. Cardiology consulted. Lane Cook Sep 01, 2017 4:40 pm
--- NOTE | 2017-09-01 17:35 | HHI.PR ---
Subjective Remarks This is a pleasant 87 y/o male who was admitted by Neurosurgery for scheduled procedure, with diagnosis of Lumbar degenerative disk disease, was admitted on 08/28/17 the patient had undergone an L4-L5 microdiskectomy on 05/28/16, he is status post trauma has been managed by Pain medicine specialist with multiple injections with no improvement, with pain on right buttocks radiated to his leg, and bottom of the foot, has Atrial Fibrillation, Hypertension, GERD, Depression, the patient was seen in his bedroom and discussed with nurse Jamil Skinner he had some run of V Tach at this time of this evaluation he has Atrial Fibrillation with controlled rate. no change on anterior evaluation, denies any chest pain. he is at baseline. 09/01: Seen in his bedroom stable in the presence of his , no signs of infection, had leukocytosis, Lactic Acid 2.2 will follow his WBC count and manage off antibiotics by now, Electrolyte derangement replacing Magnesium was 1.2 No nausea, vomit or diarrhea. Objective Vital Signs Date Time Temp Pulse Resp B/P (MAP) Pulse Ox O2 Delivery O2 Flow Rate FiO2 09/01/17 16:51 97.3 109 19 136/76 (96) 94 09/01/17 16:00 112 09/01/17 11:56 97.5 118 19 162/63 (96) 95 09/01/17 11:02 107 09/01/17 08:40 Nasal Cannula 2.00 09/01/17 08:36 98.4 118 20 140/80 (100) 95 09/01/17 05:15 98.2 115 21 135/69 (91) 94 09/01/17 00:15 97.1 100 20 140/62 (88) 94 08/31/17 21:40 98.1 110 20 142/65 (90) 94 08/31/17 20:40 Nasal Cannula 2.00 Humidified 08/31/17 18:42 104 I/O 08/31/17 08/31/17 08/31/17 09/01/17 09/01/17 09/01/17 06:59 14:59 22:59 06:59 14:59 22:59 Intake Total 720 ml 0 ml 450 ml 240 ml 100 ml Output Total 300 ml 400 ml Balance -300 ml 720 ml 0 ml 450 ml -160 ml 100 ml Intake Oral 720 ml 0 ml 450 ml 240 ml IV Total 100 ml Output Urine Total 300 ml 400 ml # Voids 4 2 1 # Bowel Movements 1 1 0 Result Diagram: 08/31/17 1454 08/31/17 1454 Imaging Last Impressions Chest X-Ray 08/30/17 0000 Signed Impressions: Service Date/Time: Wednesday, August 30, 2017 20:55 - CONCLUSION: 1. Subsegmental basilar opacity, probably atelectasis. Mika Isbell MD Lumbar Spine X-Ray 08/28/17 0000 Signed Impressions: Service Date/Time: Monday, August 28, 2017 08:40 - CONCLUSION: 1. Status post L4-L5 intradiscal and posterior fixation, as above. Shaquille Nuñez MD Procedures status post Right L4-L5 transforaminal decompression with interbody fusion, L4-L5 pedicle screw fixation, L4-L5 interbody cage placement, Microsurgical decompression by Neurosurgery specialist doctor Marshall Alvarez 08/28/17 Other Results Laboratory Tests Test 08/28/17 12:56 08/31/17 14:54 09/01/17 11:53 Protein Corrected Calcium 7.5 MG/DL White Blood Count 13.9 TH/MM3 Red Blood Count 4.67 MIL/MM3 Hemoglobin 13.0 GM/DL Hematocrit 39.8 % Mean Corpuscular Volume 85.3 FL Mean Corpuscular Hemoglobin 27.9 PG Mean Corpuscular Hemoglobin Concent 32.7 % Red Cell Distribution Width 15.4 % Platelet Count 259 TH/MM3 Mean Platelet Volume 8.5 FL Neutrophils (%) (Auto) 83.0 % Lymphocytes (%) (Auto) 8.7 % Monocytes (%) (Auto) 7.4 % Eosinophils (%) (Auto) 0.5 % Basophils (%) (Auto) 0.4 % Neutrophils # (Auto) 11.5 TH/MM3 Lymphocytes # (Auto) 1.2 TH/MM3 Monocytes # (Auto) 1.0 TH/MM3 Eosinophils # (Auto) 0.1 TH/MM3 Basophils # (Auto) 0.1 TH/MM3 CBC Comment DIFF FINAL Differential Comment Blood Urea Nitrogen 13 MG/DL Creatinine 1.15 MG/DL Random Glucose 161 MG/DL Total Protein 7.6 GM/DL Albumin 3.1 GM/DL Calcium Level 8.5 MG/DL Alkaline Phosphatase 80 U/L Aspartate Amino Transf (AST/SGOT) 16 U/L Alanine Aminotransferase (ALT/SGPT) 16 U/L Total Bilirubin 1.0 MG/DL Sodium Level 133 MEQ/L Potassium Level 3.4 MEQ/L Chloride Level 97 MEQ/L Carbon Dioxide Level 29.8 MEQ/L Anion Gap 6 MEQ/L Estimat Glomerular Filtration Rate 60 ML/MIN Lactic Acid Level 2.2 mmol/L Magnesium Level 1.2 MG/DL Objective Remarks GENERAL: This is a well-nourished, well-developed patient, in no apparent distress. SKIN: No rashes, ecchymoses or lesions. Cool and dry. HEAD: Atraumatic. Normocephalic. No temporal or scalp tenderness. EYES: Pupils equal round and reactive. Extraocular motions intact. No scleral icterus. No injection or drainage. ENT: Nose without bleeding, purulent drainage or septal hematoma. Throat without erythema, tonsillar hypertrophy or exudate. Uvula midline. Airway patent. NECK: Trachea midline. No JVD or lymphadenopathy. Supple, nontender, no meningeal signs. CARDIOVASCULAR: Irregular rate and rhythm. Systolic murmur found. RESPIRATORY: Clear to auscultation. Breath sounds equal bilaterally. No wheezes , rales, or rhonchi. GASTROINTESTINAL: Abdomen soft, non-tender, nondistended. No hepato-splenomegaly , or palpable masses. No guarding. MUSCULOSKELETAL: Extremities without clubbing, cyanosis, or edema. NEUROLOGICAL: Awake and alert. Cranial nerves II through XII intact. Medications and IVs Current Medications Medications (Trade) Dose Ordered Sig/Parish Route Start Time Stop Time Status Last Admin Sodium Chloride 1,000 ml @ 30 mls/hr Q24H IV 08/28/17 06:45 09/01/17 14:44 (Norvasc) 30 mg DAILY PO 08/29/17 09:00 09/01/17 08:30 (Cipro) 500 mg BID PO 08/28/17 21:00 09/01/17 08:31 (Cymbalta Dr) 30 mg DAILY PO 08/29/17 09:00 09/01/17 08:31 (Toprol Xl) 50 mg DAILY PO 08/29/17 09:00 09/01/17 08:31 (Vitamin B12) 1,000 mcg DAILY PO 08/29/17 09:00 09/01/17 08:31 (Protonix) 20 mg DAILY PO 08/29/17 09:00 09/01/17 08:31 (NS Flush) 2 ml UNSCH PRN IV FLUSH 08/28/17 09:45 (NS Flush) 2 ml BID IV FLUSH 08/28/17 21:00 09/01/17 08:29 (Lovenox Inj) 30 mg Q12H SQ 08/30/17 09:00 09/01/17 08:30 (Colace) 100 mg BID PO 08/28/17 21:00 09/01/17 08:30 (Milk Of Magnesia Liq) 30 ml DAILY PRN PO 08/28/17 09:45 (Mag-Al Plus Susp Liq) 30 ml Q6H PRN PO 08/28/17 09:45 (Zofran Inj) 4 mg Q6H PRN IV PUSH 08/28/17 09:45 08/30/17 17:02 (Phenergan Inj) 25 mg Q4H PRN IM 08/28/17 09:45 Calcium Gluconate 1 gm/Sodium Chloride 110 ml @ 110 mls/hr UNSCH PRN IV 08/28/17 09:45 Potassium Chloride 100 ml @ 50 mls/hr UNSCH PRN IV 08/28/17 09:45 Magnesium Sulfate 2 gm/Sodium Chloride 104 ml @ 100 mls/hr UNSCH PRN IV 08/28/17 09:45 (Flexeril) 10 mg Q8H PRN PO 08/28/17 09:45 (Catapres) 0.1 mg Q6H PRN PO 08/28/17 09:45 (Tylenol) 650 mg Q4H PRN PO 08/28/17 09:45 (Ambien) 5 mg HS PRN PO 08/28/17 09:45 (Albuterol Neb) 2.5 mg Q4HR NEB PRN NEB 08/28/17 09:45 (Percocet 10-325 Mg) 1 tab Q4H PRN PO 08/28/17 09:45 09/01/17 14:46 (Percocet 10-325 Mg) 2 tab Q4H PRN PO 08/28/17 09:45 08/30/17 18:58 (Morphine Inj) 4 mg Q1H PRN IV PUSH 08/28/17 09:45 (Miralax) 17 gm DAILY PO 08/29/17 09:00 08/30/17 07:49 (Dulcolax Supp) 10 mg DAILY PRN RECTAL 08/30/17 12:00 A/P Assessment and Plan 1. 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 Hypertension controlled. 3. Atrial Fibrillation will continue Beta blockers and Xarelto at discharge. awaiting final by process specialist consulted by Attending physician. 4. GERD by history 5. Depression by history continue Home medicines 6. Leukocytosis, Lactic Acid 2.2 no signs of infection, following off antibiotics by now will follow Lactic Acid 7. Electrolyte derangement on replacement. DVT prophylaxis as per neurosurgery specialist Okay to discharge home from Medicine standpoint. Code Status Full Code. Discharge Planning as per attending physician Angel Dubon MD Sep 01, 2017 17:35
--- NOTE | 2017-09-01 17:52 | EKG ---
Date Performed: 08/31/2017 Time Performed: 14:40:59 PTAGE: 87 years EKG: ATRIAL FIBRILLATION WITH RAPID VENTRICULAR RESPONSE Since previous tracing, no significant change noted ABNORMAL RHYTHM ECG PREVIOUS TRACING : 08/30/2017 21.18 DOCTOR: Sharlene Braun Interpretating Date/Time 09/01/2017 17:51:01
[2017-09-01] MEDS ORDERED: RIVAROXABAN 20 MG TAB PO SCH (18:00)
[2017-09-01] MEDS ORDERED: POTASSIUM CHLORIDE 20 MEQ CONTROLLED RELEASE TAB PO PRN (18:45)
[2017-09-01 19:13] LABS: MAGNESIUM 1.8 MG/DL (1.5-2.5)
--- NOTE | 2017-09-01 19:14 | MB ---
cc: DELPHINE PATHAK DO DATE OF CONSULTATION 09/01/2017 IMPRESSIONS 1. Postoperative day #3 post L4-L5 transforaminal decompression with inner body fusion with hardware using a microsurgical technique. 2. Chronic atrial fibrillation on Xarelto chronically. 3. Esophageal reflux disease. 4. Hypertension. 5. Erectile dysfunction. 6. Dyslipidemia. RECOMMENDATIONS 1. Mag-Ox 400 mg daily. The patient's magnesium level was 4.2. 2. Keep potassium level greater than 4. 3. Okay to discharge cardiovascular pruitt. 4. Pain control. 5. Increase metoprolol 50 mg b.i.d. 6. Resume Xarelto 20 mg daily as quickly as possible when okay with neurosurgery. CLINICAL DATA Mr. Meadows is an 87-year-old male who was admitted to the hospital apparently for elective surgery. He had previously undergone L4-L5 microdiskectomy in May of 2016. The patient had recurrent back pain which has been incapacitating and quite severe, radiating into his right leg. He therefore was re-admitted for repeat surgical intervention at the L4-L5 level. He has chronic atrial fibrillation. He has hypertension. The patient has no history of atherosclerotic heart disease, myocardial infarction or ventricular arrhythmias. He does have chronic a fib. Apparently yesterday the patient had a four beat run of wide QRS tachycardia. This looks more like ventricular tachycardia, than atrial fibrillation with Eli phenomenon. He has had no symptoms. He has had no previous syncope or dizzy spells. He has had no anginal type symptoms. He has been treated for depression in the past. He does have erectile dysfunction but does not have incontinence of bowel or bladder. MEDICATIONS His medications at the time of admission to the hospital included: 1. [place] for pain. 2. Hydrochlorothiazide 25 mg daily. 3. He had been on Cipro for reasons which are unclear. 4. He was on Toprol 25 mg daily. 5. He was on Xarelto 20 mg daily. 6. Prilosec 10 mg daily. 7. Cymbalta. PAST SURGICAL HISTORY Includes: 1. Right and left knee replacement. 2. Right arm surgery. 3. Cataract surgery. 4. And several surgeries on his back as noted above. He has no history of stroke or TIA. He has no history of asthma, bronchitis, emphysema, pneumonia. He has never been a heavy cigarette smoker. He has no history of overt GI bleeding or peptic ulcer disease. He has no history of renal disease. There may be a history of mild prostate disease. He has also been treated over the years for depression. He had a noninvasive cardiovascular workup in April of 2017. He had normal myocardial perfusion at that time with a normal left ventricular volume and an ejection fraction in the 65% range. He has had no chest pain. He has had no syncope or dizziness. He is quite sedentary because of his chronic leg pain. He has had no amaurosis fugax or claudication type symptoms. PHYSICAL EXAMINATION GENERAL: Physical exam at this time demonstrates an alert, oriented male in no apparent distress. VITAL SIGNS: He is in atrial fibrillation, heart rate is 100-120, most recent blood pressure 140/80. HEENT: Exam anicteric sclerae venous pressures are normal. There are no bruits. LUNGS: He has clear lung turner. Scattered rhonchi. CARDIOVASCULAR: Cardiac exam irregularly irregular rhythm. There is no S3. There is a 1/6 systolic ejection murmur. ABDOMEN: The abdomen is soft, nontender. He tells me he has had a bowel movement since surgery. EXTREMITIES: Free of cyanosis, clubbing, edema. Peripheral pulses are faintly palpable. Electrocardiogram demonstrates atrial fibrillation, leftward axis likely normal for age, nonspecific ST-T changes. LABORATORY FINDINGS The magnesium level which was checked on 09/01 today was 1.2. Potassium level was 3.4 and has not been repeated. DISCUSSION This is an 87-year-old gentleman who is postop day #3 decompression type laminectomy with hardware who has chronic atrial fibrillation. RECOMMENDATIONS Are as noted above. DO YAA Ugarte/REAGAN /5:43 PM /6:45 PM
[2017-09-01] MEDS: guaiFENesin E.R. 600 MG TAB PO SCH (20:43)
[2017-09-01] MEDS: RESP: ALBUTEROL 2.5 MG/IPRATROPIUM 0.5 MG NEB (SCH) NEB (21:01)
[2017-09-02] VITALS: BP 120/74; PULSE 67; RESP 22; TEMP 98.6; O2SAT 97
[2017-09-02] MEDS: RESP: ALBUTEROL 2.5 MG/IPRATROPIUM 0.5 MG NEB (SCH) NEB ×3 (01:48→08:00)
[2017-09-02 04:30] VITALS: BP 130/76; PULSE 62; RESP 20; TEMP 98.2; O2SAT 96
[2017-09-02] MEDS: POLYETHYLENE GLYCOL 17 GM PKG PO SCH (08:05)
[2017-09-02] MEDS: guaiFENesin E.R. 600 MG TAB PO SCH (08:07)
[2017-09-02] MEDS: CYANOCOBALAMIN 1,000 MCG TAB PO SCH (08:07)
[2017-09-02] MEDS: DULoxetine HCl DR 30 MG CAP PO SCH (08:07)
[2017-09-02] MEDS: CIPROFLOXACIN 500 MG TAB PO SCH (08:07)
[2017-09-02] MEDS: PANTOPRAZOLE SOD 20 MG DELAYED RELEASE TAB PO SCH (08:07)
[2017-09-02] MEDS: METOPROLOL SUCCINATE 50 MG EXTENDED RELEASE TAB PO SCH (08:07)
[2017-09-02] MEDS: oxyCODONE/ACETAMINOPHEN 10 MG/325 MG TAB PO PRN (08:08)
[2017-09-02] MEDS: DOCUSATE SODIUM 100 MG CAP PO SCH (08:08)
[2017-09-02] MEDS: ENOXAPARIN SODIUM 30 MG/0.3 ML SYRINGE SQ SCH (08:10)
[2017-09-02] MEDS: SODIUM CHLORIDE 0.9% FLUSH 10 ML FLUSH IV FLUSH SCH (09:00)
[2017-09-02] MEDS ORDERED: MAGNESIUM OXIDE 400 MG TAB PO SCH (09:00)
[2017-09-02 09:03] VITALS: BP 136/83; PULSE 115; RESP 17; TEMP 98.6; O2SAT 94
[2017-09-02 09:54] VITALS: O2SAT 100
--- NOTE | 2017-09-02 10:12 | HHI.PR ---
Subjective Remarks This is a pleasant 87 y/o male who was admitted by Neurosurgery for scheduled procedure, with diagnosis of Lumbar degenerative disk disease, was admitted on 08/28/17 the patient had undergone an L4-L5 microdiskectomy on 05/28/16, he is status post trauma has been managed by Pain medicine specialist with multiple injections with no improvement, with pain on right buttocks radiated to his leg, and bottom of the foot, has Atrial Fibrillation, Hypertension, GERD, Depression, the patient was seen in his bedroom and discussed with nurse Mr. Skinner he had some run of V Tach at this time of this evaluation he has Atrial Fibrillation with controlled rate. no change on anterior evaluation, denies any chest pain. he is at baseline. 09/01: Seen in his bedroom stable in the presence of his , no signs of infection, had leukocytosis, Lactic Acid 2.2 will follow his WBC count and manage off antibiotics by now, Electrolyte derangement replacing Magnesium was 1.2 09/02: Discussed with patient and his in the room, also his Nurse Janet present, patient stable no signs of infection I do not think his actual leukocytosis is related to infection, his Electrolytes were corrected yesterday, no further recommendations at this time he will go today. Objective Vital Signs Date Time Temp Pulse Resp B/P (MAP) Pulse Ox O2 Delivery O2 Flow Rate FiO2 09/02/17 09:54 100 Nasal Cannula 1.00 09/02/17 09:28 96 Nasal Cannula 2.00 09/02/17 09:03 98.6 115 17 136/83 (100) 94 09/02/17 04:30 98.2 62 20 130/76 (94) 96 09/02/17 00:00 98.6 67 22 120/74 (89) 97 09/01/17 21:03 92 Nasal Cannula 3.00 09/01/17 20:45 97.9 68 23 128/69 (88) 96 09/01/17 20:45 93 Nasal Cannula 2.00 09/01/17 19:00 100 09/01/17 16:51 97.3 109 19 136/76 (96) 94 09/01/17 16:00 112 09/01/17 11:56 97.5 118 19 162/63 (96) 95 09/01/17 11:02 107 I/O 11/09/01/17 09/01/17 09/02/17 09/02/17 09/02/17 07:00 15:00 23:00 07:00 15:00 23:00 Intake Total 450 ml 240 ml 200 ml 900 ml Output Total 400 ml Balance 450 ml -160 ml 200 ml 900 ml Intake Oral 450 ml 240 ml 900 ml IV Total 200 ml Output Urine Total 400 ml # Voids 1 3 # Bowel Movements 0 0 Result Diagram: 08/31/17 1454 09/01/17 1830 Imaging Last Impressions Chest X-Ray 08/30/17 0000 Signed Impressions: Service Date/Time: Wednesday, August 30, 2017 20:55 - CONCLUSION: 1. Subsegmental basilar opacity, probably atelectasis. Mika Isbell MD Lumbar Spine X-Ray 08/28/17 0000 Signed Impressions: Service Date/Time: Monday, August 28, 2017 08:40 - CONCLUSION: 1. Status post L4-L5 intradiscal and posterior fixation, as above. Shaquille Nuñez MD Procedures status post Right L4-L5 transforaminal decompression with interbody fusion, L4-L5 pedicle screw fixation, L4-L5 interbody cage placement, Microsurgical decompression by Neurosurgery specialist doctor Marshall Alvarez 08/28/17 Other Results Laboratory Tests Test 08/28/17 12:56 08/31/17 14:54 09/01/17 18:30 Protein Corrected Calcium 7.5 MG/DL White Blood Count 13.9 TH/MM3 Red Blood Count 4.67 MIL/MM3 Hemoglobin 13.0 GM/DL Hematocrit 39.8 % Mean Corpuscular Volume 85.3 FL Mean Corpuscular Hemoglobin 27.9 PG Mean Corpuscular Hemoglobin Concent 32.7 % Red Cell Distribution Width 15.4 % Platelet Count 259 TH/MM3 Mean Platelet Volume 8.5 FL Neutrophils (%) (Auto) 83.0 % Lymphocytes (%) (Auto) 8.7 % Monocytes (%) (Auto) 7.4 % Eosinophils (%) (Auto) 0.5 % Basophils (%) (Auto) 0.4 % Neutrophils # (Auto) 11.5 TH/MM3 Lymphocytes # (Auto) 1.2 TH/MM3 Monocytes # (Auto) 1.0 TH/MM3 Eosinophils # (Auto) 0.1 TH/MM3 Basophils # (Auto) 0.1 TH/MM3 CBC Comment DIFF FINAL Differential Comment Blood Urea Nitrogen 13 MG/DL Creatinine 1.15 MG/DL Random Glucose 161 MG/DL Total Protein 7.6 GM/DL Albumin 3.1 GM/DL Calcium Level 8.5 MG/DL Alkaline Phosphatase 80 U/L Aspartate Amino Transf (AST/SGOT) 16 U/L Alanine Aminotransferase (ALT/SGPT) 16 U/L Total Bilirubin 1.0 MG/DL Sodium Level 133 MEQ/L Potassium Level 3.4 MEQ/L 4.0 MEQ/L Chloride Level 97 MEQ/L Carbon Dioxide Level 29.8 MEQ/L Anion Gap 6 MEQ/L Estimat Glomerular Filtration Rate 60 ML/MIN Lactic Acid Level 2.0 mmol/L Magnesium Level 1.8 MG/DL Objective Remarks GENERAL: This is a well-nourished, well-developed patient, in no apparent distress. SKIN: No rashes, ecchymoses or lesions. Cool and dry. HEAD: Atraumatic. Normocephalic. No temporal or scalp tenderness. EYES: Pupils equal round and reactive. Extraocular motions intact. No scleral icterus. No injection or drainage. ENT: Nose without bleeding, purulent drainage or septal hematoma. Throat without erythema, tonsillar hypertrophy or exudate. Uvula midline. Airway patent. NECK: Trachea midline. No JVD or lymphadenopathy. Supple, nontender, no meningeal signs. CARDIOVASCULAR: Irregular rate and rhythm. Systolic murmur found. RESPIRATORY: Clear to auscultation. Breath sounds equal bilaterally. No wheezes , rales, or rhonchi. GASTROINTESTINAL: Abdomen soft, non-tender, nondistended. No hepato-splenomegaly , or palpable masses. No guarding. MUSCULOSKELETAL: Extremities without clubbing, cyanosis, or edema. NEUROLOGICAL: Awake and alert. Cranial nerves II through XII intact. Medications and IVs Current Medications Medications (Trade) Dose Ordered Sig/Parish Route Start Time Stop Time Status Last Admin Sodium Chloride 1,000 ml @ 30 mls/hr Q24H IV 08/28/17 06:45 09/01/17 14:44 (Norvasc) 30 mg DAILY PO 08/29/17 09:00 09/02/17 08:08 (Cipro) 500 mg BID PO 08/28/17 21:00 09/02/17 08:07 (Cymbalta Dr) 30 mg DAILY PO 08/29/17 09:00 09/02/17 08:07 (Toprol Xl) 50 mg DAILY PO 08/29/17 09:00 09/02/17 08:07 (Vitamin B12) 1,000 mcg DAILY PO 08/29/17 09:00 09/02/17 08:07 (Protonix) 20 mg DAILY PO 08/29/17 09:00 09/02/17 08:07 (NS Flush) 2 ml UNSCH PRN IV FLUSH 08/28/17 09:45 (NS Flush) 2 ml BID IV FLUSH 08/28/17 21:00 09/01/17 21:00 (Lovenox Inj) 30 mg Q12H SQ 08/30/17 09:00 09/02/17 08:10 (Colace) 100 mg BID PO 08/28/17 21:00 09/02/17 08:08 (Milk Of Magnesia Liq) 30 ml DAILY PRN PO 08/28/17 09:45 (Mag-Al Plus Susp Liq) 30 ml Q6H PRN PO 08/28/17 09:45 (Zofran Inj) 4 mg Q6H PRN IV PUSH 08/28/17 09:45 08/30/17 17:02 (Phenergan Inj) 25 mg Q4H PRN IM 08/28/17 09:45 Calcium Gluconate 1 gm/Sodium Chloride 110 ml @ 110 mls/hr UNSCH PRN IV 08/28/17 09:45 Potassium Chloride 100 ml @ 50 mls/hr UNSCH PRN IV 08/28/17 09:45 Magnesium Sulfate 2 gm/Sodium Chloride 104 ml @ 100 mls/hr UNSCH PRN IV 08/28/17 09:45 (Flexeril) 10 mg Q8H PRN PO 08/28/17 09:45 (Catapres) 0.1 mg Q6H PRN PO 08/28/17 09:45 (Tylenol) 650 mg Q4H PRN PO 08/28/17 09:45 (Ambien) 5 mg HS PRN PO 08/28/17 09:45 (Albuterol Neb) 2.5 mg Q4HR NEB PRN NEB 08/28/17 09:45 (Percocet 10-325 Mg) 1 tab Q4H PRN PO 08/28/17 09:45 09/02/17 08:08 (Percocet 10-325 Mg) 2 tab Q4H PRN PO 08/28/17 09:45 08/30/17 18:58 (Morphine Inj) 4 mg Q1H PRN IV PUSH 08/28/17 09:45 (Miralax) 17 gm DAILY PO 08/29/17 09:00 08/30/17 07:49 (Dulcolax Supp) 10 mg DAILY PRN RECTAL 08/30/17 12:00 (Duoneb Neb) 1 ampule Q4HR NEB NEB 09/01/17 18:00 09/01/17 21:01 (Mucinex Er) 600 mg BID PO 09/01/17 21:00 09/02/17 08:07 (Xarelto) 20 mg DAILY PO 09/01/17 18:00 (Mag-Ox) 400 mg DAILY PO 09/02/17 09:00 09/02/17 08:07 A/P Assessment and Plan 1. 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 Hypertension controlled. 3. Atrial Fibrillation will continue Beta blockers and Xarelto at discharge. awaiting final by cash posting specialist consulted by Attending physician. 4. GERD by history 5. Depression by history continue Home medicines 6. Leukocytosis, Lactic Acid 2.2 no signs of infection, following off antibiotics by now will follow Lactic Acid was 2 7. Electrolyte derangement replaced. DVT prophylaxis as per neurosurgery specialist Okay to discharge home from Medicine standpoint. Code Status Full Code. Discharge Planning as per attending physician Angel Dubon MD Sep 02, 2017 10:12
[2017-09-02 12:06] VITALS: BP 130/69; PULSE 115; RESP 18; TEMP 97.6; O2SAT 94
[2017-09-02] MEDS ORDERED: WALKER WHEELS/F1 MIS (12:06)
--- NOTE | 2017-09-02 13:33 | HHI.FF ---
Face to Face Verification Diagnosis: (1) Lumbar disc prolapse with compression radiculopathy (2) Facet arthropathy, lumbar (3) Lumbar stenosis with neurogenic claudication (4) Recurrent herniation of lumbar disc (5) S/P lumbar laminectomy Physical Therapy Order: Evaluate and Treat, Improve ambulation, Strength and gait training Home Health Nursing Order: Wound care and dressing changes Nursing assessment with vital signs I have seen patient Dain Meadows on 09/02/17. My clinical findings support the need for the requested home health care services because: Deconditioned w/ increased weakness High risk of falls I certify that my clinical findings support that this patient is homebound because: Post-op weakness Unsteady gait/balance Unable to use public transportation Lane Cook Sep 02, 2017 13:33
== END 2017-09-02 12:24 | disposition home health service (06) | DRG 460 ==
LOC: EDBD → HPAC 08-28 06:21 → HSDI 08-28 07:14 → N05A 08-28 13:17
PROVIDERS: ADMIT Neurological Surgery; ATTEND Neurological Surgery
PROC: 0ST20ZZ Resection of Lumbar Vertebral Disc, Open Approach (ICD-10-PCS; 2017-08-28)
PROC: 0SG00AJ Fusion of Lumbar Vertebral Joint with Interbody Fusion Device, Posterior Approach, Anterior Column, Open Approach (ICD-10-PCS; principal; 2017-08-28 08:34)
DX: M51.36 Other intervertebral disc degeneration, lumbar region (principal); I47.2 Ventricular tachycardia; I48.2 Chronic atrial fibrillation; I10 Essential (primary) hypertension; M48.061 Spinal stenosis, lumbar region without neurogenic claudication; M51.26 Other intervertebral disc displacement, lumbar region; R20.9 Unspecified disturbances of skin sensation; K21.9 Gastro-esophageal reflux disease without esophagitis; F32.9 Major depressive disorder, single episode, unspecified; Z96.653 Presence of artificial knee joint, bilateral; Z82.49 Family history of ischemic heart disease and other diseases of the circulatory system; Z80.9 Family history of malignant neoplasm, unspecified; Z79.01 Long term (current) use of anticoagulants; N52.9 Male erectile dysfunction, unspecified; E78.5 Hyperlipidemia, unspecified; K59.00 Constipation, unspecified; D72.829 Elevated white blood cell count, unspecified; M54.16 Radiculopathy, lumbar region
CPT/HCPCS: 71010; 72100; 76000; 76937; 80048; 80053; 83605; 83735; 84132; 84155; 85025; 85027; 86850; 86900; 86901; 93005; 94150; 94664; C1713; J0690; J1100; J1650; J2405; J3010; J3370; J3475; J3480; J7030; J7050; J7120; L0627